=== PATIENT | female | born 1965 | race Caucasian/White ===

== ENCOUNTER 2017-05-19 10:45 | Day surgery (SDC) | payer BC ==
[2017-05-19] MEDS ORDERED: MIDAZOLAM 1 MG/ML 2 ML INJ (13:32)
[2017-05-19] MEDS ORDERED: FENTAnyl 50 MCG/ML VIAL (13:32)
== END 2017-05-19 15:10 | disposition home or self-care (01) ==
LOC: GIL 10:45
DX: Z12.11 Encounter for screening for malignant neoplasm of colon (principal); K64.8 Other hemorrhoids; Z86.010 Personal history of colon polyps; E03.9 Hypothyroidism, unspecified
CPT/HCPCS: 45378